=== PATIENT | female | born 1965 | race Caucasian/White ===

== ENCOUNTER 2018-12-06 10:44 | Emergency (ER) | payer OTHER ==
[2018-12-06 11:39] VITALS: BP 130/75
[2018-12-06] MEDS ORDERED: Acetaminophen TAB* 325 MG PO ONE (12:04)
[2018-12-06] MEDS ORDERED: Silver Sulfadiazine 1%* 20 GM TOPICAL ONE (12:10)
[2018-12-06] MEDS ORDERED: Tetan/Diph/Pertus SYR(Tdap)* 0.5 ML SYR(BOOSTRIX) use SYR contains LATEX IM ONE (12:14)
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
== END 2018-12-06 12:43 | disposition home or self-care (01) ==
LOC: UCCORT 10:44
DX: T22.011A Burn of unspecified degree of right forearm, initial encounter (principal); F17.290 Nicotine dependence, other tobacco product, uncomplicated; X13.1XXA Other contact with steam and other hot vapors, initial encounter; Y92.9 Unspecified place or not applicable; Y99.0 Civilian activity done for income or pay
CPT/HCPCS: 90471; 90715; 99203; A9270-GY; G0463